=== PATIENT | male | born 1960 | race Caucasian/White ===

== ENCOUNTER 2016-12-13 03:15 | Emergency (ER) | payer SELFPAY ==
[~2016-12-13] VITALS: Ht 185.4 cm; Wt 149.5 kg
[2016-12-13] MEDS ORDERED: SODIUM CHLORIDE FLUSH 10ML SYR IVF ONE (04:00)
[2016-12-13] MEDS ORDERED: SODIUM CHLORIDE 0.9% 1,000ML IV ONE (04:00)
[2016-12-13 04:16] LABS: HEMATOCRIT 35.4 % (39.2-51.8); HEMOGLOBIN 11.4 g/dL (13.7-18.0); WHITE BLOOD COUNT 5.1 x10^3/uL (3.4-10)
[2016-12-13 04:23] LABS: BLOOD UREA NITROGEN 13 mg/dL (7-18)
[2016-12-13 04:26] LABS: ASPARTATE AMINO TRANSFERASE 19 U/L (15-37)
[2016-12-13] MEDS ORDERED: CEFTRIAXONE PMX 1GM/50ML 50 ML IV ONE (04:30)
[2016-12-13] MEDS ORDERED: CEFTRIAXONE PMX 1GM/50ML 50 ML ONE (04:48)
[2016-12-13 05:50] VITALS: BP 155/74
== END 2016-12-13 05:52 | disposition home or self-care (01) ==
LOC: ED 05:45
DX: N30.01 Acute cystitis with hematuria (principal); N10 Acute pyelonephritis
CPT/HCPCS: 36415; 74176; 80053; 81001; 83605; 84145; 85025; 87040; 87077; 87086; 87186; 93005; 96361; 96365; 99285; J0696; J7030

== ENCOUNTER 2016-12-13 19:50 | Inpatient (IN) | payer MEDICARE, OTHER ==
[~2016-12-13] VITALS: Ht 188 cm; Wt 148.8 kg
[2016-12-13] MEDS ORDERED: SODIUM CHLORIDE 0.9% 1,000 ML IV ONE ×2 (19:55→21:20)
[2016-12-13] MEDS ORDERED: SODIUM CHLORIDE FLUSH 10ML SYR IVF ONE (20:00)
[2016-12-13] MEDS ORDERED: SODIUM CHLORIDE 0.9% 1,000ML IVBOLUS ONE (20:00)
[2016-12-13] MEDS ORDERED: ACETAMINOPHEN 500 MG TABLET PO ONE (20:00)
[2016-12-13] MEDS ORDERED: CEFTRIAXONE PMX 1GM/50ML 50 ML ONE (20:18)
[2016-12-13] MEDS ORDERED: ACETAMINOPHEN 500 MG TABLET ONE (20:18)
[2016-12-13 20:20] LABS: HEMATOCRIT 34.5 % (39.2-51.8); HEMOGLOBIN 10.9 g/dL (13.7-18.0); WHITE BLOOD COUNT 4.2 x10^3/uL (3.4-10)
[2016-12-13] MEDS ORDERED: CEFTRIAXONE PMX 1GM/50ML 50 ML IV ONE (20:30)
[2016-12-13 20:32] LABS: ASPARTATE AMINO TRANSFERASE 17 U/L (15-37); BLOOD UREA NITROGEN 12 mg/dL (7-18)
[2016-12-13] MEDS ORDERED: ONDANSETRON 2MG/ML, 2ML IVPush PRN ×2 (21:30→22:00)
[2016-12-13] MEDS ORDERED: hydrALAzine 20 MG/ML, 1ML IVPush PRN (22:00)
[2016-12-13 22:53] VITALS: BP 158/86
[2016-12-14 00:45] VITALS: BP 132/71
[2016-12-14] MEDS: SODIUM CHLORIDE 0.9% 1,000 ML IV SCH ×2 (02:21→15:00)
[2016-12-14 05:09] LABS: HEMATOCRIT 31.8 % (39.2-51.8); HEMOGLOBIN 10.4 g/dL (13.7-18.0); WHITE BLOOD COUNT 2.9 x10^3/uL (3.4-10)
[2016-12-14 05:22] LABS: ASPARTATE AMINO TRANSFERASE 36 U/L (15-37); BLOOD UREA NITROGEN 11 mg/dL (7-18); TOTAL IRON BINDING CAPACITY 266 mcg/dL (250-450)
[2016-12-14 05:58] LABS: DIFF TOTAL CELLS COUNTED 100 CELL DIFF
[2016-12-14 06:02] LABS: VERIFY COUNTS? YES
[2016-12-14] MEDS: PROPRANOLOL 20 MG TABLET PO SCH ×2 (06:49→17:00)
[2016-12-14 07:36] VITALS: BP 138/80
[2016-12-14] MEDS ORDERED: OMNIPAQUE 350 MG/ML, 100ML BOTTLE ONE (10:18)
[2016-12-14] MEDS ORDERED: MAGNESIUM SULFATE PMX 2GM/50ML 50 ML IV ONE (14:00)
[2016-12-14 14:27] LABS: HEMATOCRIT 31.4 % (39.2-51.8); HEMOGLOBIN 10.1 g/dL (13.7-18.0)
[2016-12-14 14:50] VITALS: BP 145/73
[2016-12-14] MEDS ORDERED: CEFTRIAXONE PMX 2GM/50ML 50 ML IV SCH (18:00)
[2016-12-14 18:52] VITALS: BP 135/76
[2016-12-14 19:47] LABS: OCCBLD OBC PASS
[2016-12-14] MEDS ORDERED: CEFTRIAXONE PMX 1GM/50ML 50 ML IV SCH (20:30)
[2016-12-14 22:11] LABS: PATH.CAST-FLAG NOT PRESENT; SPERM-FLAG NOT PRESENT; SRC-FLAG NOT PRESENT; XTAL-FLAG NOT PRESENT; YLC-FLAG NOT PRESENT
[2016-12-15] MEDS ORDERED: OXYcodone 5 MG/5 ML ORAL.SOL UDC PO PRN (01:30)
[2016-12-15] MEDS: OXYcodone IR 5MG TABLET PO PRN ×2 (01:41→08:47)
[2016-12-15 01:45] VITALS: BP 152/76
[2016-12-15 05:55] LABS: ASPARTATE AMINO TRANSFERASE 25 U/L (15-37); BLOOD UREA NITROGEN 12 mg/dL (7-18)
[2016-12-15] MEDS: PROPRANOLOL 20 MG TABLET PO SCH ×2 (06:08→17:39)
[2016-12-15 06:26] LABS: HEMATOCRIT 32.4 % (39.2-51.8); HEMOGLOBIN 10.4 g/dL (13.7-18.0); WHITE BLOOD COUNT 4.9 x10^3/uL (3.4-10)
[2016-12-15 07:32] VITALS: BP 133/66
[2016-12-15 14:00] VITALS: BP 157/70
[2016-12-15 14:54] VITALS: BP 160/79
[2016-12-15] MEDS: SODIUM CHLORIDE 0.9% 1,000 ML IV SCH (15:19)
[2016-12-15] MEDS ORDERED: OMNIPAQUE 350 MG/ML, 150 ML BOTTLE ONE (16:00)
[2016-12-15] MEDS: ERTAPENEM 1 GM in SODIUM CHLORIDE 0.9% 50 ML IV SCH (17:38)
[2016-12-15 19:41] VITALS: BP 165/92
[2016-12-15] MEDS ORDERED: ACETAMINOPHEN 325 MG TABLET PO ONE (20:30)
[2016-12-15 20:48] LABS: ABG COLLECTION SITE RIGHT RADIAL; COLLATERAL CIRCULATION TESTING NORMAL
[2016-12-16 01:00] VITALS: BP 107/71
[2016-12-16] MEDS: SODIUM CHLORIDE 0.9% 1,000 ML IV SCH ×3 (01:30→22:35)
[2016-12-16] MEDS: PROPRANOLOL 20 MG TABLET PO SCH ×2 (06:17→17:39)
[2016-12-16 06:34] LABS: HEMATOCRIT 36.8 % (39.2-51.8); HEMOGLOBIN 11.8 g/dL (13.7-18.0); WHITE BLOOD COUNT 13.4 x10^3/uL (3.4-10)
[2016-12-16 06:49] LABS: DIFF TOTAL CELLS COUNTED 100 CELL DIFF
[2016-12-16 06:53] LABS: ANISOCYTOSIS 1+; MICROCYTOSIS 1+; VERIFY COUNTS? YES
[2016-12-16 06:55] LABS: OVALOCYTES 1+; POIKILOCYTOSIS 1+; POLYCHROMASIA 1+
[2016-12-16 07:19] VITALS: BP 120/66
[2016-12-16 12:52] VITALS: BP 116/64
[2016-12-16] MEDS ORDERED: FUROSEMIDE 40 MG/4 ML IV ONE (13:30)
[2016-12-16] MEDS: ALBUMIN HUMAN 25% 50 ML IV SCH (14:34)
[2016-12-16] MEDS: ERTAPENEM 1 GM in SODIUM CHLORIDE 0.9% 50 ML IV SCH (17:14)
[2016-12-16 17:20] VITALS: BP 102/70
[2016-12-16 20:16] VITALS: BP 96/55
[2016-12-16] MEDS: OXYcodone IR 5MG TABLET PO PRN (20:42)
[2016-12-17 01:00] VITALS: BP 134/75
[2016-12-17 05:12] LABS: HEMATOCRIT 31.3 % (39.2-51.8); HEMOGLOBIN 10.1 g/dL (13.7-18.0); WHITE BLOOD COUNT 5.6 x10^3/uL (3.4-10)
[2016-12-17 05:14] LABS: BLOOD UREA NITROGEN 21 mg/dL (7-18)
[2016-12-17 05:16] LABS: ASPARTATE AMINO TRANSFERASE 26 U/L (15-37)
[2016-12-17 05:55] VITALS: BP 110/70
[2016-12-17] MEDS: PROPRANOLOL 20 MG TABLET PO SCH ×2 (06:00→17:45)
[2016-12-17] MEDS: SODIUM CHLORIDE 0.9% 1,000 ML IV SCH (06:29)
[2016-12-17 07:36] VITALS: BP 132/76
[2016-12-17] MEDS: ALBUMIN HUMAN 25% 50 ML IV SCH (09:15)
[2016-12-17] MEDS ORDERED: SODIUM PHOSPHATE 20 MMOL in SODIUM CHLORIDE 0.9% 500 ML IV ONE (11:00)
[2016-12-17 12:35] VITALS: BP 110/65
[2016-12-17] MEDS ORDERED: IRON SUCROSE COMPLEX 100MG/5ML IV SCH (13:00)
[2016-12-17] MEDS: MEROPENEM 1 GM in SODIUM CHLORIDE 0.9% 100 ML IV SCH ×2 (15:07→22:57)
[2016-12-17 17:44] VITALS: BP 132/74
[2016-12-17 18:36] VITALS: BP 125/75
[2016-12-18 00:09] VITALS: BP 135/73
[2016-12-18 05:50] LABS: BLOOD UREA NITROGEN 16 mg/dL (7-18)
[2016-12-18 05:51] LABS: HEMATOCRIT 30.6 % (39.2-51.8); HEMOGLOBIN 9.9 g/dL (13.7-18.0); WHITE BLOOD COUNT 3.6 x10^3/uL (3.4-10)
[2016-12-18] MEDS: PROPRANOLOL 20 MG TABLET PO SCH ×2 (06:23→17:36)
[2016-12-18] MEDS: MEROPENEM 1 GM in SODIUM CHLORIDE 0.9% 100 ML IV SCH ×3 (06:23→23:03)
[2016-12-18 06:57] VITALS: BP 122/73
[2016-12-18] MEDS: IRON SUCROSE COMPLEX 100MG/5ML IV SCH (09:15)
[2016-12-18 12:33] VITALS: BP 135/71
[2016-12-18 17:36] VITALS: BP 146/75
[2016-12-18 20:16] VITALS: BP 101/62
[2016-12-19 02:00] VITALS: BP 137/79
[2016-12-19] MEDS: MEROPENEM 1 GM in SODIUM CHLORIDE 0.9% 100 ML IV SCH (06:29)
[2016-12-19] MEDS: PROPRANOLOL 20 MG TABLET PO SCH (06:31)
[2016-12-19 06:37] VITALS: BP 128/67
[2016-12-19] MEDS: IRON SUCROSE COMPLEX 100MG/5ML IV SCH (08:47)
[2016-12-19] MEDS ORDERED: PROP20TA PO (08:52)
[2016-12-19] MEDS ORDERED: SULF1TAB24 PO (08:52)
[2016-12-19] MEDS ORDERED: FURO40TA6 PO (09:00)
[2016-12-19] MEDS ORDERED: SPIR100T2 PO (09:00)
[2016-12-19 09:51] VITALS: BP 122/87
== END 2016-12-20 13:24 | disposition home or self-care (01) | DRG 871 ==
LOC: ED 20:18 → EDIP 21:21 → 4NOR 22:04 → DCLOUNGE 12-19 10:05
PROVIDERS: ADMIT Hospitalist; ATTEND Hospitalist
DX: A41.51 Sepsis due to Escherichia coli [E. coli] (principal); E43 Unspecified severe protein-calorie malnutrition; J96.00 Acute respiratory failure, unspecified whether with hypoxia or hypercapnia; G93.40 Encephalopathy, unspecified; J18.9 Pneumonia, unspecified organism; I85.10 Secondary esophageal varices without bleeding; D69.59 Other secondary thrombocytopenia; I50.30 Unspecified diastolic (congestive) heart failure; K76.6 Portal hypertension; R18.8 Other ascites; Z68.41 Body mass index [BMI] 40.0-44.9, adult; E66.01 Morbid (severe) obesity due to excess calories; E83.39 Other disorders of phosphorus metabolism; E83.42 Hypomagnesemia; D50.9 Iron deficiency anemia, unspecified; B96.89 Other specified bacterial agents as the cause of diseases classified elsewhere; I07.1 Rheumatic tricuspid insufficiency; K31.89 Other diseases of stomach and duodenum; K74.60 Unspecified cirrhosis of liver; K75.81 Nonalcoholic steatohepatitis (NASH); K80.20 Calculus of gallbladder without cholecystitis without obstruction; N20.0 Calculus of kidney; N30.91 Cystitis, unspecified with hematuria; Z16.12 Extended spectrum beta lactamase (ESBL) resistance; G89.29 Other chronic pain; R91.1 Solitary pulmonary nodule
CPT/HCPCS: 36415; 36600; 71010; 71275; 74177; 80048; 80053; 81001; 82040; 82272; 82803; 82947; 83540; 83550; 83605; 83735; 83880; 84100; 84145; 85014; 85018; 85025; 85610; 85730; 87040; 87086; 93306; 96365; J0696; J1335; J1756; J1940; J2185; P9047; Q9967; J3475; J7030; J7040

== ENCOUNTER 2017-03-09 00:27 | Inpatient (IN) | payer MEDICARE ==
[~2017-03-09] VITALS: Ht 185.4 cm; Wt 151.1 kg
[~2017-03-09 00:27] MED LIST: FURO40TA6 PO; PROP20TA PO; SPIR100T2 PO; SULF1TAB24 PO
[2017-03-09] MEDS ORDERED: SODIUM CHLORIDE 0.9% 1,000 ML IV ONE (01:40)
[2017-03-09] MEDS ORDERED: ONDANSETRON 2MG/ML, 2ML IVPush ONE (02:00)
[2017-03-09] MEDS ORDERED: SODIUM CHLORIDE 0.9% 1,000ML IVBOLUS ONE (02:00)
[2017-03-09] MEDS ORDERED: MORPHINE SULFATE 4 MG/ML, 1ML IVPush PRN (02:00)
[2017-03-09] MEDS ORDERED: SODIUM CHLORIDE FLUSH 10ML SYR IVF ONE (02:00)
[2017-03-09] MEDS ORDERED: ONDANSETRON 2MG/ML, 2ML ONE (02:03)
[2017-03-09] MEDS ORDERED: MORPHINE SULFATE 4 MG/ML, 1ML ONE (02:03)
[2017-03-09 02:20] LABS: BASOPHILS # (AUTO) 0.01 x10^3/uL (0-0.1); BASOPHILS % (AUTO) 0 % (0-1); EOSINOPHILS # (AUTO) 0.03 x10^3/uL (0-0.4); EOSINOPHILS % (AUTO) 1 % (1-7); LYMPHOCYTES # (AUTO) 0.56 x10^3/uL (1-3.4); LYMPHOCYTES % (AUTO) 10 % (22-44); MD NO; MEAN CORPUSCULAR HEMOGLOBIN 28.1 pg (27.5-34.5); MEAN CORPUSCULAR HGB CONC 33.7 g/dL (33.2-36.2); MEAN CORPUSCULAR VOLUME 83.4 fL (81-97); MEAN PLATELET VOLUME 7.4 fL (7.4-10.4); MONOCYTES # (AUTO) 0.46 x10^3/uL (0.2-0.8); MONOCYTES % (AUTO) 8 % (2-9); NEUTROPHILS # (AUTO) 4.52 x10^3/uL (1.8-6.8); NEUTROPHILS % (AUTO) 81 % (42-75); PLATELET COUNT 110 x10^3/uL (130-400); RED BLOOD COUNT 4.57 x10^6/uL (4.38-5.82); RED CELL DISTRIBUTION WIDTH 17.2 % (9.4-14.8)
[2017-03-09 02:23] LABS: ALANINE AMINOTRANSFERASE 58 U/L (12-78); ANION GAP 7 mmol/L (5-15); CALCIUM 8.8 mg/dL (8.5-10.1); CHLORIDE 105 mmol/L (98-107); CREATININE 0.93 mg/dL (0.7-1.3)
[2017-03-09 02:27] LABS: ALKALINE PHOSPHATASE 134 U/L (45-117); BILIRUBIN,TOTAL 2.5 mg/dL (0.2-1.0); TOTAL PROTEIN 7.1 g/dL (6.4-8.2); TROPONIN I < 0.015 ng/mL (0.000-0.045)
[2017-03-09] MEDS ORDERED: [UNRECOGNIZED DRUG - REMARK] PO (02:36)
[2017-03-09 02:47] LABS: INTERNATIONAL NORMALIZED RATIO 1.06 (0.93-1.1)
[2017-03-09 02:49] LABS: CULTURE INDICATED? YES; MICROSCOPIC INDICATED
[2017-03-09] MEDS ORDERED: OMNIPAQUE 350 MG/ML, 100ML BOTTLE ONE (03:00)
[2017-03-09] MEDS ORDERED: CEFTRIAXONE PMX 1GM/50ML 50 ML IV ONE (04:00)
[2017-03-09] MEDS ORDERED: CEFTRIAXONE PMX 1GM/50ML 50 ML ONE (04:21)
[2017-03-09] MEDS ORDERED: BISACODYL 10 MG SUPP PR PRN (05:30)
[2017-03-09] MEDS ORDERED: ENALAPRILAT 1.25 MG/ML, 2ML IVPush PRN (05:30)
[2017-03-09] MEDS ORDERED: POLYETHYLENE GLYCOL 17 GM PACKET PO PRN (05:30)
[2017-03-09] MEDS ORDERED: ONDANSETRON 2MG/ML, 2ML IVPush PRN (05:30)
[2017-03-09] MEDS ORDERED: HEPARIN 5,000 UNITS/ML, 1ML SQ SCH (05:30)
[2017-03-09] MEDS ORDERED: OXYcodone IR 5MG TABLET PO PRN (05:30)
[2017-03-09] MEDS ORDERED: hydrALAzine 20 MG/ML, 1ML IVPush PRN (05:30)
[2017-03-09] MEDS ORDERED: morphine SULFATE 10 MG/ML, 1ML IVPush PRN (05:30)
[2017-03-09 07:07] LABS: FREE T4 (FREE THYROXINE) 1.15 ng/dL (0.76-1.46); THYROID STIMULATING HORMONE 1.77 mIU/L (0.358-3.740)
[2017-03-09 07:20] LABS: HEMOGLOBIN A1C 7.7 % (4.2-6.3)
[2017-03-09] MEDS: LACTULOSE 10 GM/15 ML UDC PO SCH ×2 (09:00→20:22)
[2017-03-09] MEDS: SODIUM CHLORIDE 0.9% 1,000 ML IV SCH ×2 (09:27→19:00)
[2017-03-09] MEDS ORDERED: GADOBUTROL 10 MMOL/10 ML PFS ONE (13:44)
[2017-03-09 14:48] VITALS: BP 130/66
[2017-03-09 19:18] VITALS: BP 136/62
[2017-03-10 00:47] VITALS: BP 135/70
[2017-03-10 06:55] LABS: BASOPHILS # (AUTO) 0.02 x10^3/uL (0-0.1); BASOPHILS % (AUTO) 1 % (0-1); EOSINOPHILS # (AUTO) 0.15 x10^3/uL (0-0.4); EOSINOPHILS % (AUTO) 5 % (1-7); LYMPHOCYTES # (AUTO) 1.08 x10^3/uL (1-3.4); LYMPHOCYTES % (AUTO) 37 % (22-44); MD NO; MEAN CORPUSCULAR HEMOGLOBIN 28.5 pg (27.5-34.5); MEAN CORPUSCULAR HGB CONC 33.5 g/dL (33.2-36.2); MEAN CORPUSCULAR VOLUME 85.2 fL (81-97); MEAN PLATELET VOLUME 6.9 fL (7.4-10.4); MONOCYTES # (AUTO) 0.26 x10^3/uL (0.2-0.8); MONOCYTES % (AUTO) 9 % (2-9); NEUTROPHILS # (AUTO) 1.45 x10^3/uL (1.8-6.8); NEUTROPHILS % (AUTO) 49 % (42-75); PLATELET COUNT 100 x10^3/uL (130-400); RED BLOOD COUNT 4.14 x10^6/uL (4.38-5.82); RED CELL DISTRIBUTION WIDTH 16.8 % (9.4-14.8)
[2017-03-10 07:04] LABS: ALBUMIN 2.5 g/dL (3.4-5.0); ANION GAP 5 mmol/L (5-15); CALCIUM 7.5 mg/dL (8.5-10.1); CHLORIDE 108 mmol/L (98-107)
[2017-03-10 07:08] LABS: ALANINE AMINOTRANSFERASE 57 U/L (12-78); ALKALINE PHOSPHATASE 120 U/L (45-117); CHOL/HDL RATIO 2.2; CHOLESTEROL, TOTAL 119 mg/dL (140-239); CREATININE 0.78 mg/dL (0.7-1.3); HDL CHOL % 45 % (26-37); HDL CHOLESTEROL (DIRECT) 54 mg/dL (40-60); LDL CHOLESTEROL,CALCULATED 55 mg/dL (54-169); TOTAL PROTEIN 5.9 g/dL (6.4-8.2); TRIGLYCERIDES 51 mg/dL (50-200); VLDL CHOLESTEROL 10 mg/dL (0-25)
[2017-03-10] MEDS ORDERED: MIDAZOLAM 1 MG/ML, 5ML ONE (07:45)
[2017-03-10] MEDS ORDERED: FENTANYL PF 100 MCG/2ML ONE (07:45)
[2017-03-10] MEDS ORDERED: NALOXONE 1 MG/ML, 2ML ONE (07:46)
[2017-03-10] MEDS ORDERED: MIDAZOLAM 1 MG/ML, 2ML ONE (07:46)
[2017-03-10] MEDS ORDERED: FLUMAZENIL 0.1 MG/1 ML, 5ML ONE (07:46)
[2017-03-10] MEDS: LACTULOSE 10 GM/15 ML UDC PO SCH ×2 (09:00→21:00)
[2017-03-10 09:33] VITALS: BP 128/61
[2017-03-10] MEDS ORDERED: SPIR100T2 PO (11:34)
[2017-03-10 14:00] VITALS: BP 140/63
[2017-03-10 21:34] VITALS: BP 148/84
[2017-03-11 02:29] VITALS: BP 135/75
[2017-03-11 08:30] VITALS: BP 132/79
[2017-03-11] MEDS: LACTULOSE 10 GM/15 ML UDC PO SCH (08:56)
[2017-03-11] MEDS ORDERED: SPIRONOLACTONE 100 MG TABLET PO SCH (09:00)
[2017-03-11] MEDS ORDERED: HEPARIN 5,000 UNITS/ML, 1ML SQ SCH (17:00)
== END 2017-03-11 15:53 | disposition home or self-care (01) | DRG 166 ==
LOC: ED 03:48 → EDIP 03:53 → ED 03:53 → 4WST 06:50
PROVIDERS: ADMIT Internal Medicine; ATTEND Internal Medicine
PROC: 07B73ZX Excision of Thorax Lymphatic, Percutaneous Approach, Diagnostic (ICD-10-PCS; principal; 2017-03-10)
DX: R91.1 Solitary pulmonary nodule (principal); E43 Unspecified severe protein-calorie malnutrition; E87.2 Acidosis; D69.6 Thrombocytopenia, unspecified; C77.1 Secondary and unspecified malignant neoplasm of intrathoracic lymph nodes; N30.90 Cystitis, unspecified without hematuria; I85.00 Esophageal varices without bleeding; K76.6 Portal hypertension; Z68.41 Body mass index [BMI] 40.0-44.9, adult; C34.92 Malignant neoplasm of unspecified part of left bronchus or lung; M54.9 Dorsalgia, unspecified; K74.60 Unspecified cirrhosis of liver; I51.7 Cardiomegaly; M19.90 Unspecified osteoarthritis, unspecified site; R59.9 Enlarged lymph nodes, unspecified; E66.9 Obesity, unspecified; M47.814 Spondylosis without myelopathy or radiculopathy, thoracic region
CPT/HCPCS: 32405; 36415; 71045; 71275; 72157; 72158; 77012; 80053; 80061; 81001; 82105; 82962; 83036; 83605; 83615; 83735; 83880; 84145; 84439; 84443; 84484; 85025; 85610; 85730; 87040; 87086; 88305; 93005; 93306; 96361; 96374; 96375; 99156; 99157; A9585; C2613; J0696; J2250; J2405; J3010; Q9967; J2270; J2310; J7030

== ENCOUNTER 2018-05-25 20:23 | Inpatient (IN) | payer MEDICARE ==
[~2018-05-25] VITALS: Ht 185.4 cm; Wt 156.0 kg
[~2018-05-25 20:23] MED LIST changes: -SPIR100T2 PO; +SPIR100T4 PO; +[UNRECOGNIZED DRUG - REMARK] PO
[2018-05-25] MEDS ORDERED: OMNIPAQUE 350 MG/ML, 100ML BOTTLE ONE (20:41)
[2018-05-25] MEDS ORDERED: MORPHINE SULFATE 4 MG/ML, 1ML IVPush PRN (21:00)
[2018-05-25] MEDS ORDERED: SODIUM CHLORIDE FLUSH 10ML SYR IVF ONE (21:00)
[2018-05-25] MEDS ORDERED: ONDANSETRON 2MG/ML, 2ML IVPush ONE (21:00)
[2018-05-25 21:09] LABS: ALANINE AMINOTRANSFERASE 25 U/L (12-78); ALBUMIN 2.4 g/dL (3.4-5.0); ANION GAP 5 mmol/L (5-15); CALCIUM 7.4 mg/dL (8.5-10.1); CHLORIDE 110 mmol/L (98-107); CREATININE 0.96 mg/dL (0.7-1.3)
--- NOTE | 2018-05-25 21:09 | NUR ---
ASSUMED CARE OF PT. PT PRESENTS TO ED WITH C/O DRAINAGE FROM PETRUDING MASS FROM PERIUMBILICAL REGION. STATES MASS STARTED SMALL ABOUT A YEAR AGO AFTER HAVING COLONSCOPY AND SINCE THEN IT HAS GROWN. NON TENDER. PT ALSO STATES BILATERAL LOWER EXTREMITY SWELLING AND SOB WITH EXCERATION OCCURING OVER THE LAST MONTH. MILD AMOUNT OF DISTRESS NOTED. BREATHING REGULAR AND UNLABORED. IV STARTED. POC DISCUSSED. URINAL AT BEDSIDE. WILL CONTINUE TO MONITOR.
[2018-05-25 21:14] LABS: ALKALINE PHOSPHATASE 115 U/L (45-117); BILIRUBIN,TOTAL 3.2 mg/dL (0.2-1.0); TOTAL PROTEIN 6.1 g/dL (6.4-8.2); TROPONIN I < 0.015 ng/mL (0.000-0.045)
[2018-05-25 21:19] LABS: INTERNATIONAL NORMALIZED RATIO 1.25 (0.93-1.1)
[2018-05-25 21:35] LABS: BASOPHILS # (AUTO) 0.03 x10^3/uL (0-0.1); BASOPHILS % (AUTO) 1 % (0-1); EOSINOPHILS # (AUTO) 0.56 x10^3/uL (0-0.4); EOSINOPHILS % (AUTO) 12 % (1-7); LYMPHOCYTES # (AUTO) 1.08 x10^3/uL (1-3.4); LYMPHOCYTES % (AUTO) 23 % (22-44); MD SCAN; MEAN CORPUSCULAR HEMOGLOBIN 30.5 pg (27.5-34.5); MEAN CORPUSCULAR VOLUME 92.4 fL (81-97); MEAN PLATELET VOLUME 6.9 fL (7.4-10.4); MONOCYTES % (AUTO) 11 % (2-9); NEUTROPHILS # (AUTO) 2.48 x10^3/uL (1.8-6.8); NEUTROPHILS % (AUTO) 53 % (42-75); PLATELET COUNT 97 x10^3/uL (130-400); RED BLOOD COUNT 4.12 x10^6/uL (4.38-5.82); RED CELL DISTRIBUTION WIDTH 14.2 % (9.4-14.8)
--- NOTE | 2018-05-25 22:10 | NUR ---
PT BACK FROM CT. LABS AND RAD RESULTED. ERMD AWARE.
--- NOTE | 2018-05-25 22:25 | NUR ---
PT TO BE ADMITTED.
--- NOTE | 2018-05-25 22:40 | NUR ---
HOSPITALIST AT BEDSIDE.
--- NOTE | 2018-05-25 23:11 | NUR ---
REPORT TO ANNA SHANNON.
--- NOTE | 2018-05-25 23:40 | NUR ---
HOSPITALIST CONTINUES TO BE AT BEDSIDE.
[2018-05-26 00:11] VITALS: BP 147/77
[2018-05-26 00:28] LABS: MICROSCOPIC INDICATED
[2018-05-26] MEDS ORDERED: ENALAPRILAT 1.25 MG/ML, 2ML IVPush PRN (00:30)
[2018-05-26] MEDS ORDERED: ONDANSETRON 2MG/ML, 2ML IVPush PRN (00:30)
[2018-05-26 00:35] LABS: CULTURE INDICATED? NO
[2018-05-26 00:42] LABS: HEMOGLOBIN A1C 5.7 % (4.2-6.3)
[2018-05-26] MEDS ORDERED: FUROSEMIDE 40 MG/4 ML IV SCH (02:00)
[2018-05-26] MEDS ORDERED: ALBUTEROL SULFATE 2.5 MG/3 ML ONE (02:54)
[2018-05-26 06:21] LABS: ALANINE AMINOTRANSFERASE 21 U/L (12-78); ALBUMIN 2.5 g/dL (3.4-5.0); ANION GAP 5 mmol/L (5-15); CALCIUM 7.7 mg/dL (8.5-10.1); CHLORIDE 110 mmol/L (98-107); CHOLESTEROL, TOTAL 98 mg/dL (140-239); CREATININE 0.83 mg/dL (0.7-1.3); TRIGLYCERIDES 52 mg/dL (50-200); VLDL CHOLESTEROL 10 mg/dL (0-25)
[2018-05-26 06:24] LABS: INTERNATIONAL NORMALIZED RATIO 1.26 (0.93-1.1); PROTHROMBIN TIME 13.1 Seconds (9.6-11.5)
[2018-05-26 06:24] LABS: ALKALINE PHOSPHATASE 107 U/L (45-117); BILIRUBIN,TOTAL 3.7 mg/dL (0.2-1.0); HDL CHOL % 50 % (26-37); HDL CHOLESTEROL (DIRECT) 49 mg/dL (40-60); LDL CHOLESTEROL,CALCULATED 39 mg/dL (54-169); LDL/HDL RATIO 0.8 (0.5-3.0); TOTAL PROTEIN 6.1 g/dL (6.4-8.2)
[2018-05-26 06:30] LABS: MEAN CORPUSCULAR HEMOGLOBIN 31.4 pg (27.5-34.5); MEAN CORPUSCULAR HGB CONC 34.3 g/dL (33.2-36.2); MEAN CORPUSCULAR VOLUME 91.5 fL (81-97); MEAN PLATELET VOLUME 6.9 fL (7.4-10.4); PLATELET COUNT 97 x10^3/uL (130-400); RED BLOOD COUNT 4.04 x10^6/uL (4.38-5.82); RED CELL DISTRIBUTION WIDTH 14.8 % (9.4-14.8)
[2018-05-26 07:24] VITALS: BP 127/72
[2018-05-26 07:28] LABS: BASOPHILS # (AUTO) 0.04 x10^3/uL (0-0.1); BASOPHILS % (AUTO) 1 % (0-1); EOSINOPHILS # (AUTO) 0.53 x10^3/uL (0-0.4); EOSINOPHILS % (AUTO) 12 % (1-7); LYMPHOCYTES # (AUTO) 1.02 x10^3/uL (1-3.4); LYMPHOCYTES % (AUTO) 23 % (22-44); MD SCAN; MONOCYTES # (AUTO) 0.51 x10^3/uL (0.2-0.8); MONOCYTES % (AUTO) 12 % (2-9); NEUTROPHILS # (AUTO) 2.36 x10^3/uL (1.8-6.8); NEUTROPHILS % (AUTO) 53 % (42-75)
[2018-05-26] MEDS: SPIRONOLACTONE 25 MG TABLET PO SCH (07:38)
[2018-05-26] MEDS: LACTULOSE 10 GM/15 ML UDC PO SCH ×2 (07:38→21:00)
[2018-05-26] MEDS ORDERED: LIDOCAINE-MPF 1%, 5ML ONE (09:37)
[2018-05-26 12:28] VITALS: BP 122/70
[2018-05-26] MEDS: FUROSEMIDE 40 MG TABLET PO SCH (17:14)
[2018-05-26 19:49] VITALS: BP 165/58
[2018-05-27 02:25] VITALS: BP 125/67
[2018-05-27 02:28] VITALS: BP 125/67
[2018-05-27 05:00] LABS: MEAN CORPUSCULAR HEMOGLOBIN 31.6 pg (27.5-34.5); MEAN CORPUSCULAR HGB CONC 34.7 g/dL (33.2-36.2); MEAN CORPUSCULAR VOLUME 91.3 fL (81-97); MEAN PLATELET VOLUME 6.8 fL (7.4-10.4); PLATELET COUNT 81 x10^3/uL (130-400); RED BLOOD COUNT 3.59 x10^6/uL (4.38-5.82); RED CELL DISTRIBUTION WIDTH 14.7 % (9.4-14.8)
[2018-05-27 05:02] LABS: ALANINE AMINOTRANSFERASE 20 U/L (12-78); ALBUMIN 2.2 g/dL (3.4-5.0); ANION GAP 6 mmol/L (5-15); CALCIUM 7.4 mg/dL (8.5-10.1); CHLORIDE 113 mmol/L (98-107); CREATININE 0.85 mg/dL (0.7-1.3)
[2018-05-27 05:07] LABS: ALKALINE PHOSPHATASE 92 U/L (45-117); BILIRUBIN,TOTAL 3.7 mg/dL (0.2-1.0); TOTAL PROTEIN 5.5 g/dL (6.4-8.2)
[2018-05-27 06:22] LABS: BASOPHILS # (AUTO) 0.02 x10^3/uL (0-0.1); BASOPHILS % (AUTO) 1 % (0-1); EOSINOPHILS # (AUTO) 0.38 x10^3/uL (0-0.4); EOSINOPHILS % (AUTO) 12 % (1-7); LYMPHOCYTES # (AUTO) 0.82 x10^3/uL (1-3.4); LYMPHOCYTES % (AUTO) 25 % (22-44); MD SCAN; MONOCYTES # (AUTO) 0.37 x10^3/uL (0.2-0.8); MONOCYTES % (AUTO) 11 % (2-9); NEUTROPHILS # (AUTO) 1.66 x10^3/uL (1.8-6.8); NEUTROPHILS % (AUTO) 51 % (42-75)
[2018-05-27 07:53] VITALS: BP 118/66
[2018-05-27] MEDS: LACTULOSE 10 GM/15 ML UDC PO SCH ×2 (08:39→21:00)
[2018-05-27] MEDS: FUROSEMIDE 40 MG TABLET PO SCH ×2 (08:40→17:16)
[2018-05-27] MEDS: SPIRONOLACTONE 25 MG TABLET PO SCH (08:40)
[2018-05-27 15:12] VITALS: BP 136/67
[2018-05-27 20:19] VITALS: BP 143/70
[2018-05-28 02:35] VITALS: BP 132/69
[2018-05-28 07:12] VITALS: BP 125/65
[2018-05-28] MEDS: LACTULOSE 10 GM/15 ML UDC PO SCH ×2 (09:00→20:14)
[2018-05-28] MEDS: FUROSEMIDE 40 MG TABLET PO SCH ×2 (09:55→17:06)
[2018-05-28] MEDS: SPIRONOLACTONE 100 MG TABLET PO SCH (09:55)
[2018-05-28] MEDS ORDERED: FENTANYL PF 100 MCG/2ML ONE ×2 (11:21)
[2018-05-28] MEDS ORDERED: MIDAZOLAM 1 MG/ML, 5ML ONE (11:21)
[2018-05-28 13:42] VITALS: BP 126/73
[2018-05-28 20:00] VITALS: BP 133/68
[2018-05-29 02:00] VITALS: BP 130/75
[2018-05-29 05:48] LABS: MEAN CORPUSCULAR HEMOGLOBIN 31.7 pg (27.5-34.5); MEAN CORPUSCULAR HGB CONC 34.5 g/dL (33.2-36.2); MEAN CORPUSCULAR VOLUME 91.9 fL (81-97); PLATELET COUNT 82 x10^3/uL (130-400); RED BLOOD COUNT 3.78 x10^6/uL (4.38-5.82); RED CELL DISTRIBUTION WIDTH 14.4 % (9.4-14.8)
[2018-05-29 05:53] LABS: ALANINE AMINOTRANSFERASE 22 U/L (12-78); ALBUMIN 2.3 g/dL (3.4-5.0); ANION GAP 6 mmol/L (5-15); CHLORIDE 107 mmol/L (98-107); CREATININE 0.75 mg/dL (0.7-1.3)
[2018-05-29 05:56] LABS: ALKALINE PHOSPHATASE 95 U/L (45-117); BILIRUBIN,TOTAL 4.6 mg/dL (0.2-1.0); TOTAL PROTEIN 5.8 g/dL (6.4-8.2)
[2018-05-29 06:11] LABS: BASOPHILS # (AUTO) 0.04 x10^3/uL (0-0.1); BASOPHILS % (AUTO) 1 % (0-1); EOSINOPHILS # (AUTO) 0.45 x10^3/uL (0-0.4); EOSINOPHILS % (AUTO) 11 % (1-7); LYMPHOCYTES # (AUTO) 0.93 x10^3/uL (1-3.4); LYMPHOCYTES % (AUTO) 24 % (22-44); MD SCAN; MONOCYTES # (AUTO) 0.47 x10^3/uL (0.2-0.8); MONOCYTES % (AUTO) 12 % (2-9); NEUTROPHILS # (AUTO) 2.06 x10^3/uL (1.8-6.8); NEUTROPHILS % (AUTO) 52 % (42-75)
[2018-05-29 07:55] VITALS: BP 134/77
[2018-05-29] MEDS: SPIRONOLACTONE 100 MG TABLET PO SCH (09:00)
[2018-05-29] MEDS: LACTULOSE 10 GM/15 ML UDC PO SCH (09:00)
[2018-05-29] MEDS: FUROSEMIDE 40 MG TABLET PO SCH (09:13)
[2018-05-29] MEDS ORDERED: LACT10SO5 PO (12:02)
[2018-05-29] MEDS ORDERED: FURO40TA6 PO (12:02)
[2018-05-29] MEDS ORDERED: SPIR100T4 PO (12:02)
[2018-05-29 12:18] VITALS: BP 125/73
== END 2018-05-29 15:20 | disposition home or self-care (01) | DRG 380 ==
LOC: ED 21:00 → EDIP 22:54 → 3NE 23:54
PROVIDERS: ADMIT Family Medicine; ATTEND Family Medicine
PROC: 0DB98ZX Excision of Duodenum, Via Natural or Artificial Opening Endoscopic, Diagnostic (ICD-10-PCS; principal; 2018-05-25)
PROC: 06L38CZ Occlusion of Esophageal Vein with Extraluminal Device, Via Natural or Artificial Opening Endoscopic (ICD-10-PCS; 2018-05-25)
PROC: 0WJG3ZZ Inspection of Peritoneal Cavity, Percutaneous Approach (ICD-10-PCS; 2018-05-26)
DX: K22.70 Barrett's esophagus without dysplasia (principal); K72.00 Acute and subacute hepatic failure without coma; K76.6 Portal hypertension; Z68.42 Body mass index [BMI] 45.0-49.9, adult; R18.8 Other ascites; I85.10 Secondary esophageal varices without bleeding; K75.81 Nonalcoholic steatohepatitis (NASH); D64.9 Anemia, unspecified; D69.6 Thrombocytopenia, unspecified; K31.89 Other diseases of stomach and duodenum; K31.7 Polyp of stomach and duodenum; I11.9 Hypertensive heart disease without heart failure; E11.9 Type 2 diabetes mellitus without complications; E66.01 Morbid (severe) obesity due to excess calories; G47.33 Obstructive sleep apnea (adult) (pediatric); G89.29 Other chronic pain; K74.60 Unspecified cirrhosis of liver; K42.9 Umbilical hernia without obstruction or gangrene; Z79.899 Other long term (current) drug therapy; Z80.0 Family history of malignant neoplasm of digestive organs; Z80.7 Family history of other malignant neoplasms of lymphoid, hematopoietic and related tissues; Z83.3 Family history of diabetes mellitus; Z91.19 Patient's noncompliance with other medical treatment and regimen; Z90.49 Acquired absence of other specified parts of digestive tract
CPT/HCPCS: 36415; 49083; 71045; 74177; 80053; 80061; 81001; 82105; 82140; 83036; 83690; 83735; 83880; 84443; 84484; 85025; 85610; 85730; 88305; 93005; 93306; 99285; G0378; J1940; J2250; J3010; Q9967

== ENCOUNTER 2019-03-16 23:48 | Emergency (ER) | payer MEDICARE ==
[~2019-03-16] VITALS: Ht 185.4 cm; Wt 123.0 kg
[~2019-03-16 23:48] MED LIST changes: +AZIT250T89 PO; +CEFD300C37 PO; +LACT10SO24 PO
[2019-03-17] MEDS ORDERED: OXYC-302 PO (00:07)
--- NOTE | 2019-03-17 00:17 | NUR ---
THIS IS A 59 YO MALE BIB [facility] FOR ACUTE ONSET OF DIZZINESS/LIGHTHEADED, MIDLINE AND EPIGASTRIC PAIN RADIATING TO THE MIDLINE OF BACK STARTING AROUND 2200 WITH ONSET OF PAIN RATED 8/10. PATIENT HAS HX OF CHRONIC BACK PAIN AND TAKE PERCOCET AT HOME, PT TOOK ONE WHEN PAIN STARTED WITH NO RELIEF. PER [facility], PATIENT HAD PROLONGED QT ON 12 LEAD, UNEQUAL BP WITH LOWER BP ON THE RIGHT. PIV PLACED BY [facility] AND WAS GIVEN 100MCG OF FENTANYL AND A TOTAL OF 150ML NS. PATIENT A&OX4, GCS 15, NEURO INTACT, EQUAL PULSES BILATERALLY IN RADIAL AND PEDAL. BP STILL LOWER ON RIGHT IN ED. ALL MONITORING IN PLACE. EKG DONE AND GIVEN TO MD TY. CALL LIGHT IN REACH, INSTRUCTED PT ON NEED FOR UA
--- NOTE | 2019-03-17 00:20 | NUR ---
PATIENT TO CT
--- NOTE | 2019-03-17 00:31 | NUR ---
PATIENT BACK FROM CT, ALL MONITORING BACK IN PLACE.
[2019-03-17 00:51] LABS: BASOPHILS # (AUTO) 0.01 x10^3/uL (0-0.1); BASOPHILS % (AUTO) 0 % (0-1); EOSINOPHILS # (AUTO) 0.43 x10^3/uL (0-0.4); EOSINOPHILS % (AUTO) 7 % (1-7); LYMPHOCYTES # (AUTO) 0.65 x10^3/uL (1-3.4); LYMPHOCYTES % (AUTO) 10 % (22-44); MD NO; MEAN CORPUSCULAR HEMOGLOBIN 31.2 pg (27.5-34.5); MEAN CORPUSCULAR HGB CONC 33.7 g/dL (33.2-36.2); MEAN CORPUSCULAR VOLUME 92.4 fL (81-97); MEAN PLATELET VOLUME 6.7 fL (7.4-10.4); MONOCYTES # (AUTO) 0.67 x10^3/uL (0.2-0.8); MONOCYTES % (AUTO) 10 % (2-9); NEUTROPHILS # (AUTO) 4.83 x10^3/uL (1.8-6.8); NEUTROPHILS % (AUTO) 73 % (42-75); PLATELET COUNT 140 x10^3/uL (130-400); RED BLOOD COUNT 3.76 x10^6/uL (4.38-5.82); RED CELL DISTRIBUTION WIDTH 14.5 % (9.4-14.8)
[2019-03-17 01:04] LABS: ALANINE AMINOTRANSFERASE 34 U/L (12-78); ALBUMIN 2.2 g/dL (3.4-5.0); ANION GAP 7 mmol/L (5-15); CALCIUM 7.7 mg/dL (8.5-10.1); CHLORIDE 100 mmol/L (98-107); CREATININE 2.07 mg/dL (0.7-1.3)
[2019-03-17 01:09] LABS: ALKALINE PHOSPHATASE 198 U/L (45-117); BILIRUBIN,TOTAL 3.4 mg/dL (0.2-1.0); TOTAL PROTEIN 6.9 g/dL (6.4-8.2); TROPONIN I < 0.015 ng/mL (0.000-0.045)
--- NOTE | 2019-03-17 01:57 | NUR ---
REPORT TO ANNA BLAKE. PLAN OF CARE DISCUSSED.
--- NOTE | 2019-03-17 02:26 | NUR ---
given dc instruction pt understood pt up on w/c after given dc instruction family at bed side for supporting pt vss stable iv was out
[2019-03-17 02:28] VITALS: BP 121/56
[2019-03-17] MEDS ORDERED: OMNIPAQUE 350 MG/ML, 100ML BOTTLE ONE (06:00)
== END 2019-03-17 02:29 | disposition home or self-care (01) ==
LOC: ED 03-17 00:12
DX: R10.13 Epigastric pain (principal); M54.6 Pain in thoracic spine; N17.9 Acute kidney failure, unspecified
CPT/HCPCS: 36415; 71275; 74174; 80053; 83605; 83690; 84484; 85025; 93005; 99284; Q9967

== ENCOUNTER 2019-03-19 19:15 | Inpatient (IN) | payer MEDICARE ==
[~2019-03-19] VITALS: Ht 185.4 cm; Wt 126.8 kg
[~2019-03-19 19:15] MED LIST changes: +OXYC-302 PO
--- NOTE | 2019-03-19 19:35 | NUR ---
Patient presents to ER c/o low back pain which radiates to epigastric area x3 days. Patient was seen for the same on Monday and evaluated for AAA which he states was negative. Patient is nauseous and vomited earlier at 1300. Patient denies diarrhea. Patient has a history of slight chronic back pain which he does not take medication for but this pain is different. Patient appears slightly lethargic and slightly jaundiced. Patient has a hx of non-alcoholic fatty liver disease. Respirations even and unlabored.
[2019-03-19 20:22] LABS: BASOPHILS # (AUTO) 0.02 x10^3/uL (0-0.1); BASOPHILS % (AUTO) 0 % (0-1); EOSINOPHILS # (AUTO) 0.29 x10^3/uL (0-0.4); EOSINOPHILS % (AUTO) 6 % (1-7); LYMPHOCYTES # (AUTO) 0.93 x10^3/uL (1-3.4); LYMPHOCYTES % (AUTO) 18 % (22-44); MD NO; MEAN CORPUSCULAR HEMOGLOBIN 31.1 pg (27.5-34.5); MEAN CORPUSCULAR HGB CONC 34.1 g/dL (33.2-36.2); MEAN PLATELET VOLUME 6.4 fL (7.4-10.4); MONOCYTES # (AUTO) 0.48 x10^3/uL (0.2-0.8); MONOCYTES % (AUTO) 9 % (2-9); NEUTROPHILS # (AUTO) 3.42 x10^3/uL (1.8-6.8); NEUTROPHILS % (AUTO) 67 % (42-75); PLATELET COUNT 165 x10^3/uL (130-400); RED BLOOD COUNT 3.83 x10^6/uL (4.38-5.82)
[2019-03-19 20:31] LABS: ALANINE AMINOTRANSFERASE 80 U/L (12-78); ALBUMIN 2.4 g/dL (3.4-5.0); ANION GAP 9 mmol/L (5-15); CALCIUM 8.3 mg/dL (8.5-10.1); CHLORIDE 100 mmol/L (98-107); CREATININE 2.41 mg/dL (0.7-1.3)
[2019-03-19 20:34] LABS: ALKALINE PHOSPHATASE 358 U/L (45-117); BILIRUBIN,TOTAL 6.3 mg/dL (0.2-1.0); TOTAL PROTEIN 7.3 g/dL (6.4-8.2); TROPONIN I < 0.015 ng/mL (0.000-0.045)
[2019-03-19 20:36] LABS: MICROSCOPIC NOT IND
[2019-03-19 20:37] LABS: CULTURE INDICATED? NO
[2019-03-19] MEDS ORDERED: CEFTRIAXONE PMX 1GM/50ML 50 ML IV SCH (21:00)
[2019-03-19] MEDS ORDERED: AZITHROMYCIN 500 MG in SODIUM CHLORIDE 0.9% 250 ML IV ONE (21:00)
[2019-03-19] MEDS ORDERED: CEFTRIAXONE PMX 1GM/50ML 50 ML ONE (21:05)
[2019-03-19] MEDS ORDERED: OXYcodone/APAP 5/325MG TABLET ONE (21:16)
[2019-03-19] MEDS ORDERED: SODIUM CHLORIDE 0.9% 1,000ML IVBOLUS ONE (21:30)
[2019-03-19] MEDS ORDERED: OXYcodone/APAP 5/325MG TABLET PO ONE (21:30)
--- NOTE | 2019-03-19 21:46 | NUR ---
Medications admin per mar. Patient to be admitted.
--- NOTE | 2019-03-19 22:28 | NUR ---
Report given to ANNA Gamble. Patient to be transferred to room 501.
[2019-03-19 22:43] VITALS: BP 103/66
[2019-03-20] MEDS ORDERED: ONDANSETRON 2MG/ML, 2ML IVPush PRN
[2019-03-20] MEDS ORDERED: OXYcodone IR 5MG TABLET PO PRN
[2019-03-20] MEDS: LACTATED RINGERS 1,000 ML IV SCH ×3 (01:00→20:00)
[2019-03-20 02:25] LABS: BASOPHILS # (AUTO) 0.05 x10^3/uL (0-0.1); BASOPHILS % (AUTO) 1 % (0-1); EOSINOPHILS # (AUTO) 0.69 x10^3/uL (0-0.4); EOSINOPHILS % (AUTO) 13 % (1-7); LYMPHOCYTES # (AUTO) 1.08 x10^3/uL (1-3.4); LYMPHOCYTES % (AUTO) 21 % (22-44); MD NO; MEAN CORPUSCULAR HGB CONC 33.9 g/dL (33.2-36.2); MEAN CORPUSCULAR VOLUME 91.4 fL (81-97); MEAN PLATELET VOLUME 6.2 fL (7.4-10.4); MONOCYTES # (AUTO) 0.52 x10^3/uL (0.2-0.8); MONOCYTES % (AUTO) 10 % (2-9); NEUTROPHILS # (AUTO) 2.87 x10^3/uL (1.8-6.8); NEUTROPHILS % (AUTO) 55 % (42-75); PLATELET COUNT 159 x10^3/uL (130-400); RED BLOOD COUNT 3.74 x10^6/uL (4.38-5.82); RED CELL DISTRIBUTION WIDTH 13.8 % (9.4-14.8)
[2019-03-20 02:37] LABS: ALBUMIN 2.1 g/dL (3.4-5.0); ANION GAP 9 mmol/L (5-15); CHLORIDE 103 mmol/L (98-107)
[2019-03-20 02:39] LABS: INTERNATIONAL NORMALIZED RATIO 1.12 (0.93-1.1); PROTHROMBIN TIME 11.9 Seconds (9.6-11.5)
[2019-03-20 02:42] LABS: ALANINE AMINOTRANSFERASE 72 U/L (12-78); ALKALINE PHOSPHATASE 319 U/L (45-117); BILIRUBIN,TOTAL 3.6 mg/dL (0.2-1.0); CREATININE 2.52 mg/dL (0.7-1.3); TOTAL PROTEIN 6.9 g/dL (6.4-8.2)
[2019-03-20 02:56] LABS: CREATININE,URINE RANDOM 53.7 mg/dL
[2019-03-20 03:54] VITALS: BP 98/63
[2019-03-20 06:34] VITALS: BP 110/68
[2019-03-20 07:28] LABS: CHLORIDE,URINE RANDOM 114 mmol/L; POTASSIUM,URINE RANDOM 20 mmol/L; SODIUM,URINE RANDOM 104 mmol/L
[2019-03-20] MEDS: AZITHROMYCIN 250 MG TABLET PO SCH (08:31)
[2019-03-20] MEDS: HEPARIN 5,000 UNITS/ML, 1ML SQ SCH ×2 (08:31)
[2019-03-20] MEDS: CEFTRIAXONE PMX 1GM/50ML 50 ML IV SCH (10:19)
[2019-03-20 12:45] VITALS: BP 117/74
[2019-03-20 19:11] VITALS: BP 125/75
[2019-03-21 02:57] VITALS: BP 100/64
[2019-03-21] MEDS: LACTATED RINGERS 1,000 ML IV SCH ×3 (04:02→23:30)
[2019-03-21 05:09] LABS: BASOPHILS # (AUTO) 0.04 x10^3/uL (0-0.1); BASOPHILS % (AUTO) 1 % (0-1); EOSINOPHILS # (AUTO) 0.67 x10^3/uL (0-0.4); EOSINOPHILS % (AUTO) 13 % (1-7); LYMPHOCYTES # (AUTO) 0.86 x10^3/uL (1-3.4); LYMPHOCYTES % (AUTO) 17 % (22-44); MD NO; MEAN CORPUSCULAR HGB CONC 33.9 g/dL (33.2-36.2); MEAN CORPUSCULAR VOLUME 91.5 fL (81-97); MEAN PLATELET VOLUME 6.5 fL (7.4-10.4); MONOCYTES # (AUTO) 0.65 x10^3/uL (0.2-0.8); MONOCYTES % (AUTO) 13 % (2-9); NEUTROPHILS # (AUTO) 2.84 x10^3/uL (1.8-6.8); NEUTROPHILS % (AUTO) 56 % (42-75); PLATELET COUNT 138 x10^3/uL (130-400); RED BLOOD COUNT 3.71 x10^6/uL (4.38-5.82); RED CELL DISTRIBUTION WIDTH 14.3 % (9.4-14.8)
[2019-03-21 05:18] LABS: ALBUMIN 2.1 g/dL (3.4-5.0); ANION GAP 8 mmol/L (5-15); CALCIUM 7.7 mg/dL (8.5-10.1); CHLORIDE 101 mmol/L (98-107)
[2019-03-21 05:22] LABS: CREATININE 2.49 mg/dL (0.7-1.3)
[2019-03-21 05:23] LABS: % IRON SATURATION 29 % (20-55); ALANINE AMINOTRANSFERASE 47 U/L (12-78); ALKALINE PHOSPHATASE 256 U/L (45-117); BILIRUBIN,TOTAL 2.2 mg/dL (0.2-1.0); IRON LEVEL 57 mcg/dL (65-175); TOTAL IRON BINDING CAPACITY 196 mcg/dL (250-450); TOTAL PROTEIN 6.6 g/dL (6.4-8.2)
[2019-03-21 07:50] VITALS: BP 112/68
[2019-03-21] MEDS: AZITHROMYCIN 250 MG TABLET PO SCH (09:31)
[2019-03-21] MEDS: CEFTRIAXONE PMX 1GM/50ML 50 ML IV SCH (09:32)
[2019-03-21 15:39] VITALS: BP 129/68
[2019-03-21 18:42] VITALS: BP 109/68
[2019-03-22 00:17] VITALS: BP 114/72
[2019-03-22 08:15] VITALS: BP 116/78
[2019-03-22] MEDS: CEFTRIAXONE PMX 1GM/50ML 50 ML IV SCH (09:16)
[2019-03-22] MEDS: AZITHROMYCIN 250 MG TABLET PO SCH (09:27)
[2019-03-22] MEDS: LACTATED RINGERS 1,000 ML IV SCH (09:28)
[2019-03-22 10:58] LABS: CHLORIDE 105 mmol/L (98-107)
[2019-03-22 10:59] LABS: ANION GAP 5 mmol/L (5-15); CALCIUM 7.8 mg/dL (8.5-10.1); CREATININE 1.66 mg/dL (0.7-1.3)
[2019-03-22] MEDS ORDERED: CEFD250S26 PO (12:14)
[2019-03-22] MEDS ORDERED: AZIT250T89 PO (12:14)
[2019-03-22] MEDS ORDERED: CEFD300C37 PO (13:31)
== END 2019-03-22 14:47 | disposition home or self-care (01) | DRG 441 ==
LOC: ED 21:26 → EDIP 22:28 → 5SO 22:29
PROVIDERS: ADMIT Family Medicine; ATTEND Family Medicine
PROC: 0W9G3ZZ Drainage of Peritoneal Cavity, Percutaneous Approach (ICD-10-PCS; principal; 2019-03-20)
DX: K72.90 Hepatic failure, unspecified without coma (principal); J15.9 Unspecified bacterial pneumonia; I85.10 Secondary esophageal varices without bleeding; E87.1 Hypo-osmolality and hyponatremia; J94.8 Other specified pleural conditions; K76.6 Portal hypertension; R18.8 Other ascites; E46 Unspecified protein-calorie malnutrition; K74.60 Unspecified cirrhosis of liver; K75.81 Nonalcoholic steatohepatitis (NASH); I86.4 Gastric varices; D63.8 Anemia in other chronic diseases classified elsewhere; E11.9 Type 2 diabetes mellitus without complications; E66.01 Morbid (severe) obesity due to excess calories; G89.29 Other chronic pain; K40.90 Unilateral inguinal hernia, without obstruction or gangrene, not specified as recurrent; K42.9 Umbilical hernia without obstruction or gangrene; K82.8 Other specified diseases of gallbladder; Z59.9 Problem related to housing and economic circumstances, unspecified; Z80.0 Family history of malignant neoplasm of digestive organs; Z87.01 Personal history of pneumonia (recurrent); Z91.19 Patient's noncompliance with other medical treatment and regimen; Z79.899 Other long term (current) drug therapy; Z90.49 Acquired absence of other specified parts of digestive tract; Z88.6 Allergy status to analgesic agent; Z68.36 Body mass index [BMI] 36.0-36.9, adult; T50.8X1A Poisoning by diagnostic agents, accidental (unintentional), initial encounter; N14.4 Toxic nephropathy, not elsewhere classified
CPT/HCPCS: 36415; 49083; 71045; 76700; 80048; 80053; 80074; 81003; 82436; 82570; 82728; 83540; 83550; 83605; 83690; 83880; 84133; 84145; 84300; 84484; 84540; 85025; 85610; 87040; 87070; 87205; 88112; 88305; 89051; 93005; 99285; G0378; J0456; J0696; J1644; J7030; J7050; J7120

== ENCOUNTER 2019-05-13 19:25 | Emergency (ER) | payer MEDICARE, OTHER ==
[~2019-05-13] VITALS: Ht 185.4 cm; Wt 125.9 kg
[~2019-05-13 19:25] MED LIST changes: +CEFD250S26 PO
[2019-05-13] MEDS ORDERED: SPIR100T4 PO (19:39)
[2019-05-13] MEDS ORDERED: FURO80TA77 PO (19:39)
--- NOTE | 2019-05-13 20:27 | NUR ---
PT. RESTING ON GURNEY WITH NO DISTRESS NOTED. DENIES NEEDS. AWAITING LABS. ALL SAFETY MEASURES OBSERVED. ALL MONITORS REMAIN IN PLACE.
[2019-05-13 21:26] LABS: BASOPHILS # (AUTO) 0.03 x10^3/uL (0-0.1); BASOPHILS % (AUTO) 1 % (0-1); EOSINOPHILS # (AUTO) 0.91 x10^3/uL (0-0.4); EOSINOPHILS % (AUTO) 14 % (1-7); LYMPHOCYTES # (AUTO) 0.72 x10^3/uL (1-3.4); LYMPHOCYTES % (AUTO) 12 % (22-44); MD NO; MEAN CORPUSCULAR HEMOGLOBIN 31.4 pg (27.5-34.5); MEAN CORPUSCULAR HGB CONC 34.2 g/dL (33.2-36.2); MONOCYTES # (AUTO) 0.67 x10^3/uL (0.2-0.8); MONOCYTES % (AUTO) 11 % (2-9); NEUTROPHILS # (AUTO) 3.95 x10^3/uL (1.8-6.8); NEUTROPHILS % (AUTO) 63 % (42-75); PLATELET COUNT 174 x10^3/uL (130-400); RED BLOOD COUNT 3.04 x10^6/uL (4.38-5.82); RED CELL DISTRIBUTION WIDTH 13.9 % (9.4-14.8)
[2019-05-13 21:29] LABS: ALANINE AMINOTRANSFERASE 36 U/L (12-78); ALBUMIN 1.9 g/dL (3.4-5.0); ANION GAP 7 mmol/L (5-15); CALCIUM 7.7 mg/dL (8.5-10.1); CHLORIDE 103 mmol/L (98-107); CREATININE 1.95 mg/dL (0.7-1.3)
[2019-05-13 21:33] LABS: ALKALINE PHOSPHATASE 190 U/L (45-117); BILIRUBIN,TOTAL 2.1 mg/dL (0.2-1.0); TOTAL PROTEIN 7.2 g/dL (6.4-8.2); TROPONIN I < 0.015 ng/mL (0.000-0.045)
[2019-05-13 22:28] VITALS: BP 126/54
== END 2019-05-13 22:46 | disposition home or self-care (01) ==
LOC: ED 22:30
DX: R07.89 Other chest pain (principal); D64.9 Anemia, unspecified; N18.9 Chronic kidney disease, unspecified; E80.7 Disorder of bilirubin metabolism, unspecified; G89.29 Other chronic pain
CPT/HCPCS: 36415; 71045; 80053; 83880; 84484; 85025; 93005; 99285

== ENCOUNTER 2020-07-06 02:53 | Emergency (ER) | payer SELFPAY ==
[~2020-07-06] VITALS: Ht 185.4 cm; Wt 140.0 kg
[~2020-07-06 02:53] MED LIST changes: +FURO80TA77 PO; -OXYC-302 PO; +OXYC1TAB14 PO; +SULF-23 PO; -SULF1TAB24 PO
[2020-07-06] MEDS ORDERED: SODIUM CHLORIDE FLUSH 10ML SYR IVF ONE (03:30)
[2020-07-06] MEDS ORDERED: SODIUM CHLORIDE 0.9% 1,000 ML IV ONE (03:30)
[2020-07-06] MEDS ORDERED: KETOROLAC 30 MG/1 ML IVPush ONE (03:30)
[2020-07-06] MEDS ORDERED: LORazepam 2 MG/ML, 1ML IVPush ONE (03:30)
[2020-07-06] MEDS ORDERED: LORazepam 2 MG/ML, 1ML ONE (03:38)
[2020-07-06] MEDS ORDERED: KETOROLAC 30 MG/1 ML ONE (03:38)
[2020-07-06 03:59] LABS: BASOPHILS % (AUTO) 1 % (0-1); EOSINOPHILS % (AUTO) 6 % (1-7); LYMPHOCYTES % (AUTO) 16 % (22-44); MEAN CORPUSCULAR HEMOGLOBIN 32.2 pg (27.5-34.5); MEAN PLATELET VOLUME 7.2 fL (7.4-10.4); MONOCYTES % (AUTO) 14 % (2-9); NEUTROPHILS % (AUTO) 63 % (42-75); PLATELET COUNT 122 x10^3/uL (130-400); RED BLOOD COUNT 3.84 x10^6/uL (4.38-5.82); RED CELL DISTRIBUTION WIDTH 13.4 % (9.4-14.8)
[2020-07-06 04:00] LABS: MD NO
[2020-07-06 04:09] LABS: ALANINE AMINOTRANSFERASE 17 U/L (12-78); ALBUMIN 2.7 g/dL (3.4-5.0); ANION GAP 8 mmol/L (5-15); CALCIUM 7.8 mg/dL (8.5-10.1); CHLORIDE 104 mmol/L (98-107); CREATININE 2.92 mg/dL (0.7-1.3)
[2020-07-06 04:14] LABS: ALKALINE PHOSPHATASE 95 U/L (45-117); BILIRUBIN,TOTAL 3.2 mg/dL (0.2-1.0); TOTAL PROTEIN 7.5 g/dL (6.4-8.2); TROPONIN I < 0.015 ng/mL (0.000-0.045)
[2020-07-06 05:04] VITALS: BP 121/47
[2020-07-06 05:36] LABS: MICROSCOPIC INDICATED
== END 2020-07-06 06:14 | disposition home or self-care (01) ==
LOC: ED 03:46
DX: M25.552 Pain in left hip (principal); R53.1 Weakness; N18.30 Chronic kidney disease, stage 3 unspecified; R94.4 Abnormal results of kidney function studies; R94.31 Abnormal electrocardiogram [ECG] [EKG]; G89.29 Other chronic pain; Z90.89 Acquired absence of other organs
CPT/HCPCS: 36415; 71045; 73502; 80053; 81001; 84484; 85025; 93005; 96361; 96374; 96375; 99285; J1885; J2060; J7030; 99284